=== PATIENT | female | born 1980 | race Caucasian/White ===

== ENCOUNTER 2020-09-14 03:55 | Emergency (ER) | payer OTHER | END 2020-09-14 06:01 | disposition home or self-care (01) | LOC: ER1 03:55 | DX: S06.9X9A Unspecified intracranial injury with loss of consciousness of unspecified duration, initial encounter (principal); S16.1XXA Strain of muscle, fascia and tendon at neck level, initial encounter; S39.012A Strain of muscle, fascia and tendon of lower back, initial encounter; V49.9XXA Car occupant (driver) (passenger) injured in unspecified traffic accident, initial encounter; Y92.410 Unspecified street and highway as the place of occurrence of the external cause | CPT/HCPCS: 70450; 72125; 72128; 72131; 99284 ==

== ENCOUNTER 2020-12-27 21:30 | Emergency (ER) | payer OTHER | END 2020-12-27 22:55 | disposition home or self-care (01) | LOC: ER1 21:30 | DX: S61.411A Laceration without foreign body of right hand, initial encounter (principal); W26.8XXA Contact with other sharp object(s), not elsewhere classified, initial encounter; Y92.009 Unspecified place in unspecified non-institutional (private) residence as the place of occurrence of the external cause; Z23 Encounter for immunization | CPT/HCPCS: 12002; 73130; 90471; 99283 ==